=== PATIENT | female | born 1960 | race Two or more races ===

== ENCOUNTER 2023-06-04 07:00 | Inpatient (IN) | payer MEDICARE, MEDICAID ==
[2023-06-02 12:55] LABS: Urine Bacteria FEW /hpf (None Seen); Urine Blood Negative /uL (Negative); Urine Clarity HAZY (Clear); Urine Color Yellow (Yellow); Urine Protein, UAD TRACE (Negative); Urine Specific Gravity 1.024 (1.001-1.035); Urine Urobilinogen Normal (Negative); Urine WBC 2 /hpf (0 - 5); Urine pH 5.5 (5.0-8.0)
[2023-06-02 13:00] LABS: Basophils # (auto) 0.1 10 ^3/uL (0-0.2); Basophils % (auto) 0.8 % (0.0-2.0); Eosinophils # (auto) 0.3 10 ^3/uL (0-0.8); Eosinophils % (auto) 3.6 % (0.0-7.0); Hematocrit 42.6 % (36.0-46.0); Hemoglobin 14.7 g/dL (12.2-16.2); Lymphocytes % (auto) 36.1 % (10.0-50.0); Mean Corpuscular Hemoglobin 32.3 pg (28.0-32.0); Mean Corpuscular Hgb Conc. 34.4 g/dL (32.0-36.0); Mean Corpuscular Volume 93.7 fL (80.0-100.0); Monocytes # (auto) 0.6 10 ^3/uL (0-1.3); Monocytes % (auto) 7.4 % (0.0-12.0); Neutrophils # (auto) 4.3 10 ^3/uL (1.6-8.6); Neutrophils % (auto) 52.1 % (37.0-80.0); Red Blood Cells 4.55 10^6/uL (4.0-5.20); Red Cell Distribution Width 14.2 % (11.8-14.3); White Blood Cell 8.3 10^3/uL (4.4-10.8)
[2023-06-02 13:05] LABS: Partial Thromboplastin Time 28.8 SEC (24.5-34.5); Prothrombin Time 10.5 sec (9.3-11.8)
[2023-06-02 13:27] LABS: Alanine Aminotransferase 17 U/L (7-40); Albumin 4.3 g/dL (3.2-4.8); Alkaline Phosphatase 84 U/L (46-116); Anion Gap 7 (5-15); Aspartate Aminotransferase 19 U/L (13-40); BUN/Creatinine Ratio 10.8 (10.0-20.0); Blood Urea Nitrogen 11 mg/dL (9-23); Calcium 9.1 mg/dL (8.5-10.1); Carbon Dioxide 27 mmol/L (20-30); Chloride 104 mmol/L (98-107); Glucose 187 mg/dL (74-106); Potassium 3.7 mmol/L (3.5-5.1); Sodium 138 mmol/L (136-145)
[2023-06-02 13:28] LABS: Bilirubin, Total 0.3 mg/dL (0.2-1.0); Total Protein 6.7 g/dL (5.7-8.2)
[~2023-06-04] VITALS: Ht 175.3 cm; Wt 82.5 kg
[~2023-06-04 07:00] MED LIST: EST0625T PO; HYDR-3682 PO; HYDR-4798 PO; LEVO75TA6 PO; LOSA-534 PO; MIRT-93 PO; PREG100C PO; TIZA2CAP7 PO; VALA500T33 PO
[2023-06-04] MEDS: ceFAZolin 2 GM/D5W50ml 50 ML IV ONE (07:59)
[2023-06-04] MEDS: TRANEXAMIC ACID 20 ML ONE (09:26)
[2023-06-04] MEDS: levoFLOXacin 750MG 150 ML IV ONE (09:30)
[2023-06-04] MEDS ORDERED: HYDROmorphone HCL 2 MG/ML VL/or syr ONE (10:18)
[2023-06-04] MEDS ORDERED: fentaNYL CITRATE 100 MCG/2 ML VL ONE ×3 (10:19→12:30)
[2023-06-04] MEDS ORDERED: MIDAZOLAM HCL 2MG/2ML 2ml VIAL (1mg/ml) ONE (10:19)
[2023-06-04] MEDS ORDERED: DexAMETHasone SOD PHOS 10MG/1ML VIAL INJ ONE (10:38)
[2023-06-04] MEDS ORDERED: PROPOFOL 10 MG/ML 20 ML IV ONE (10:38)
[2023-06-04] MEDS: LIDOCAINE W/ EPINEPHRINE 1% 20ML VIAL ONE (11:00)
[2023-06-04] MEDS ORDERED: ROCURONIUM 10MG/ML 10ML VIAL IV ONE (11:07)
[2023-06-04] MEDS ORDERED: ONDANSETRON HCL 4 MG/2 ML VIAL ONE (11:07)
[2023-06-04] MEDS ORDERED: SUGAMMADEX 200mg/2ml Vial (100MG/ML) IV ONE (11:29)
[2023-06-04] MEDS ORDERED: MORPHINE SULFATE INJ 2 MG/ml SYRG IV PRN ×2 (13:15→13:45)
[2023-06-04] MEDS ORDERED: NITROGLYCERIN 0.4 MG SL TAB SL PRN (13:15)
[2023-06-04 13:26] VITALS: RESP 14; O2SAT 100
[2023-06-04] MEDS: MORPHINE SULFATE INJ 2 MG/ml SYRG ONE (13:37)
[2023-06-04] MEDS ORDERED: MORPHINE SULFATE 4 MG/ML SYR/VIAL IV PRN ×3 (13:45→14:00)
[2023-06-04] MEDS ORDERED: MIDAZOLAM HCL 2MG/2ML 2ml VIAL (1mg/ml) IV PRN ×2 (13:45→14:00)
[2023-06-04] MEDS: ONDANSETRON HCL 4 MG/2 ML VIAL IV ONE (13:45)
[2023-06-04] MEDS ORDERED: ePHEDrine SULFATE 50 MG/ML AMP IV PRN ×2 (13:45→14:00)
[2023-06-04] MEDS ORDERED: HYDROmorphone HCL 2 MG/ML VL/or syr IV PRN ×2 (13:45→14:00)
[2023-06-04] MEDS ORDERED: LABETALOL HCL 5 MG/ML 4ML SYRINGE IV PRN ×2 (13:45→14:00)
[2023-06-04] MEDS: ACETAMINOPHEN IV 1000 MG/100ML (10MG/ML) IV PRN (13:49)
[2023-06-04] MEDS: ACETAMINOPHEN IV 100 ML IV ONE (13:49)
[2023-06-04] MEDS ORDERED: ceFAZolin 1GM/50ML 50 ML IV SCH ×2 (14:00)
[2023-06-04] MEDS ORDERED: PREGABALIN 100 MG PO SCH (14:00)
[2023-06-04] MEDS: CYCLOBENZAPRINE HCL 10 MG TAB PO SCH (14:00)
[2023-06-04] MEDS: HYDROcodone-ACET 10/325MG TAB PO PRN (14:22)
[2023-06-04] MEDS: CYCLOBENZAPRINE HCL 10 MG TAB ONE (14:24)
[2023-06-04] MEDS: HYDROcodone-ACET 10/325MG TAB ONE (14:25)
[2023-06-04 16:46] VITALS: BP 159/82; PULSE 69; RESP 19; TEMP 98.5; O2SAT 96
[2023-06-04] MEDS: ceFAZolin 1GM/50ML 50 ML IV SCH (17:27)
[2023-06-04] MEDS: D5W/SOD CHLO 0.9% 1,000 ML IV SCH (17:27)
[2023-06-04] MEDS: HYDROcodone-ACET 10/325MG TAB PO SCH (17:40)
[2023-06-04] MEDS ORDERED: MIRTAZAPINE 15 MG PO SCH (18:00)
[2023-06-04] MEDS: MORPHINE SULFATE INJ 2 MG/ml SYRG IV PRN (19:06)
[2023-06-04 20:00] VITALS: PULSE 64
[2023-06-04 21:43] VITALS: BP 139/71; PULSE 69; RESP 18; TEMP 97.9; O2SAT 96
[2023-06-04] MEDS: TIZANIDINE HYDROCHLORIDE 2 MG PO SCH (22:00)
[2023-06-04] MEDS: PREGABALIN 25 MG CAP PO SCH (22:00)
[2023-06-04] MEDS: DOCUSATE SOD 100 MG CAP PO SCH (22:01)
[2023-06-04] MEDS: PRIMIDONE 50 MG TAB PO SCH (22:02)
[2023-06-04] MEDS: hydrOXYzine 25 MG TAB or CAP PO SCH (22:03)
[2023-06-04] MEDS: MIRTAZAPINE 30 MG TAB PO SCH (22:03)
[2023-06-05] VITALS (8 sets, daily range): BP systolic 128–141; BP diastolic 61–77; PULSE 68–94; RESP 16–18; TEMP 98.4–99.1; O2SAT 92–96
[2023-06-05 04:47] LABS: Basophils # (auto) 0 10 ^3/uL (0-0.2); Basophils % (auto) 0.3 % (0.0-2.0); Eosinophils # (auto) 0 10 ^3/uL (0-0.8); Eosinophils % (auto) 0.5 % (0.0-7.0); Hematocrit 34.1 % (36.0-46.0); Hemoglobin 11.7 g/dL (12.2-16.2); Lymphocytes % (auto) 20.9 % (10.0-50.0); Mean Corpuscular Hemoglobin 31.9 pg (28.0-32.0); Mean Corpuscular Hgb Conc. 34.1 g/dL (32.0-36.0); Mean Corpuscular Volume 93.6 fL (80.0-100.0); Monocytes # (auto) 0.7 10 ^3/uL (0-1.3); Monocytes % (auto) 7.1 % (0.0-12.0); Neutrophils # (auto) 6.9 10 ^3/uL (1.6-8.6); Neutrophils % (auto) 71.2 % (37.0-80.0); Nucleated Red Blood Cells % 0.1 %; Red Blood Cells 3.65 10^6/uL (4.0-5.20); White Blood Cell 9.7 10^3/uL (4.4-10.8)
[2023-06-05 05:00] LABS: Alanine Aminotransferase 18 U/L (7-40); Albumin 3.2 g/dL (3.2-4.8); Alkaline Phosphatase 51 U/L (46-116); Anion Gap 8 (5-15); Aspartate Aminotransferase 31 U/L (13-40); BUN/Creatinine Ratio 9.4 (10.0-20.0); Bilirubin, Total 0.3 mg/dL (0.2-1.0); Blood Urea Nitrogen 8 mg/dL (9-23); Calcium 7.8 mg/dL (8.7-10.4); Carbon Dioxide 20 mmol/L (20-30); Chloride 108 mmol/L (98-107); Glucose 132 mg/dL (74-106); Potassium 3.7 mmol/L (3.5-5.1); Sodium 136 mmol/L (136-145); Total Protein 5.3 g/dL (5.7-8.2)
[2023-06-05] MEDS: LOSARTAN POTASSIUM 50 MG TAB PO SCH (06:08)
[2023-06-05] MEDS: LEVOTHYROXINE SODIUM 25 MCG TAB PO SCH (06:09)
[2023-06-05] MEDS: ONDANSETRON HCL 4 MG/2 ML VIAL IV PRN ×2 (06:10→13:00)
[2023-06-05] MEDS: ESTROGENS CONJUGATED 1.25 MG PO SCH (10:00)
[2023-06-05] MEDS ORDERED: PATIENTS OWN MEDICATION (Levothyroxine Sodium 75 MCG) PO SCH (10:00)
[2023-06-05] MEDS: VALACYCLOVIR HCL 500 MG TAB PO SCH (10:20)
[2023-06-05] MEDS ORDERED: PRIM50TA27 PO (14:58)
[2023-06-05] MEDS ORDERED: FOLI-119 PO (14:58)
[2023-06-05] MEDS ORDERED: METH2.5T PO (14:58)
[2023-06-06 01:00] VITALS: BP 160/73; PULSE 85; RESP 20; TEMP 100.1; O2SAT 94
[2023-06-06 05:00] VITALS: BP 159/74; PULSE 85; RESP 18; TEMP 99.6; O2SAT 96
[2023-06-06 08:00] VITALS: BP 164/83; PULSE 90; RESP 18; TEMP 100.2; O2SAT 94
[2023-06-06] MEDS: LOSARTAN POTASSIUM 50 MG TAB PO SCH (08:23)
[2023-06-06 12:00] VITALS: BP_SYST 144; BP_SYST 146; BP_DIAS 81; BP_DIAS 99; PULSE 52; PULSE 86; RESP 16; RESP 18; TEMP 97.9; TEMP 98.6; O2SAT 95; O2SAT 97
[2023-06-06] MEDS: ACETAMINOPHEN 325 MG TAB PO PRN (13:09)
[2023-06-06] MEDS: amLODIPine BESYLATE 5 MG TAB PO ONE (14:28)
[2023-06-06 16:00] VITALS: BP 146/72; PULSE 92; RESP 16; TEMP 99.6; O2SAT 94
[2023-06-06 17:34] LABS: COVID19 ANTIGEN SOFIA FIA NEGATIVE (NEGATIVE); Rapid Influenza A Negative (Negative); Rapid Influenza B Negative (Negative)
[2023-06-06 21:00] VITALS: BP 134/79; PULSE 94; RESP 18; TEMP 99.8; O2SAT 96
[2023-06-07 01:00] VITALS: BP 142/61; PULSE 65; RESP 16; TEMP 98.3; O2SAT 95
[2023-06-07 05:00] VITALS: BP 146/76; PULSE 82; RESP 18; TEMP 98.9; O2SAT 97
[2023-06-07 05:26] LABS: Basophils # (auto) 0 10 ^3/uL (0-0.2); Basophils % (auto) 0.4 % (0.0-2.0); Eosinophils # (auto) 0.1 10 ^3/uL (0-0.8); Eosinophils % (auto) 0.6 % (0.0-7.0); Hematocrit 32.5 % (36.0-46.0); Hemoglobin 11.1 g/dL (12.2-16.2); Lymphocytes # (auto) 1.4 10 ^3/uL (0.4-5.4); Lymphocytes % (auto) 15.9 % (10.0-50.0); Mean Corpuscular Hemoglobin 32.1 pg (28.0-32.0); Mean Corpuscular Hgb Conc. 34.3 g/dL (32.0-36.0); Mean Corpuscular Volume 93.5 fL (80.0-100.0); Monocytes # (auto) 0.8 10 ^3/uL (0-1.3); Monocytes % (auto) 9.2 % (0.0-12.0); Neutrophils # (auto) 6.5 10 ^3/uL (1.6-8.6); Neutrophils % (auto) 73.9 % (37.0-80.0); Red Blood Cells 3.48 10^6/uL (4.0-5.20); Red Cell Distribution Width 13.9 % (11.8-14.3); White Blood Cell 8.8 10^3/uL (4.4-10.8)
[2023-06-07 05:33] LABS: Anion Gap 4 (5-15); Carbon Dioxide 26 mmol/L (20-30); Chloride 107 mmol/L (98-107); Potassium 3.4 mmol/L (3.5-5.1); Sodium 137 mmol/L (136-145)
[2023-06-07 05:34] LABS: Calcium 8.5 mg/dL (8.7-10.4)
[2023-06-07 05:39] LABS: BUN/Creatinine Ratio 9.8 (10.0-20.0); Blood Urea Nitrogen 8 mg/dL (9-23); Glucose 173 mg/dL (74-106)
[2023-06-07 09:00] VITALS: BP 138/52; PULSE 84; RESP 20; TEMP 98.6; O2SAT 97
[2023-06-07] MEDS: amLODIPine BESYLATE 5 MG TAB PO SCH (09:58)
[2023-06-07 13:00] VITALS: BP 136/71; PULSE 88; RESP 16; TEMP 98.3; O2SAT 99
[2023-06-07 17:00] VITALS: BP 143/73; PULSE 85; RESP 20; TEMP 98.6; O2SAT 98
[2023-06-07 21:54] VITALS: BP 148/67; PULSE 80; RESP 18; TEMP 98.1; O2SAT 96
[2023-06-08 01:32] VITALS: BP 120/63; PULSE 91; RESP 18; TEMP 97.8; O2SAT 96
[2023-06-08 05:20] VITALS: BP 132/63; PULSE 74; RESP 18; TEMP 98.4; O2SAT 95
[2023-06-08 08:00] VITALS: PULSE 72; RESP 19; O2SAT 96
[2023-06-08 08:30] VITALS: BP 124/72; PULSE 72; RESP 19; TEMP 98.9; O2SAT 96
[2023-06-08 13:00] VITALS: BP 144/75; PULSE 76; RESP 17; TEMP 98.3; O2SAT 96
[2023-06-08 13:55] VITALS: BP 144/75; PULSE 76; RESP 17; TEMP 98.3; O2SAT 96
[2023-06-08] MEDS ORDERED: PRIMIDONE 50 MG TAB PO SCH (18:00)
[2023-06-09] MEDS ORDERED: METHOTREXATE 2.5 MG TAB PO SCH (10:00)
== END 2023-06-08 16:10 | disposition home health service (06) | DRG 460 ==
LOC: SUR 07:00 → TELE 13:22 → TELE-EAST 15:18 → EAST 06-08 07:36
PROVIDERS: ADMIT Orthopaedic Surgery; ATTEND Internal Medicine
PROC: 0SG1071 Fusion of 2 or more Lumbar Vertebral Joints with Autologous Tissue Substitute, Posterior Approach, Posterior Column, Open Approach (ICD-10-PCS; 2023-06-04)
PROC: 01NB0ZZ Release Lumbar Nerve, Open Approach (ICD-10-PCS; 2023-06-04)
PROC: 4A11X4G Monitoring of Peripheral Nervous Electrical Activity, Intraoperative, External Approach (ICD-10-PCS; 2023-06-04)
PROC: 00NY0ZZ Release Lumbar Spinal Cord, Open Approach (ICD-10-PCS; principal; 2023-06-04 10:11)
DX: M48.062 Spinal stenosis, lumbar region with neurogenic claudication (principal); M51.16 Intervertebral disc disorders with radiculopathy, lumbar region; B02.9 Zoster without complications; E03.9 Hypothyroidism, unspecified; Z20.822 Contact with and (suspected) exposure to COVID-19; G62.9 Polyneuropathy, unspecified; I10 Essential (primary) hypertension; M47.9 Spondylosis, unspecified; Z87.891 Personal history of nicotine dependence
CPT/HCPCS: 36415; 71045; 72100; 76000; 80048; 80053; 81001; 83735; 84443; 85025; 85610; 85730; 86850; 86900; 86901; 87040; 87426; 87804; 97110; 97116; 97163; 97530; G0378; J0131; J1100; J2250; J2405; J2704; J7042